=== PATIENT | female | born 1960 | race Caucasian/White ===

== ENCOUNTER 2018-04-17 13:09 | Emergency (ER) | payer SELFPAY ==
[2018-04-17 13:55] LABS: #Basophils 0.1 thou/uL (0.0-0.2); #Eosinphils 0.3 thou/uL (0.0-0.7); #Lymphocytes 1.4 thou/uL (1.20-3.40); #Monocytes 0.4 thou/uL (0.11-0.59); #Neutrophils 6.9 thou/uL (1.40-6.50); %Basophils 0.7 % (0.0-1.0); %Eosinophils 3.5 % (0.0-10.0); %Lymphocytes 15.6 % (21.0-51.0); %Monocytes 4.3 % (0.0-10.0); %Neutrophils 75.8 % (42.0-75.0); Hemoglobin 15.9 g/dL (12.0-16.0); Mean Corpuscular HGB CONC 33.8 g/dL (32.0-36.0); Mean Corpuscular Hemoglobin 31.6 pg (27.0-31.0); Mean Corpuscular Volume 93.4 fL (78.0-98.0); Mean Platelet Volume 8.1 fL (7.4-10.4); Platelet Count 272 thou/uL (130-400); Red Blood Cell (RBC) Count 5.03 mill/uL (4.20-5.40); White Blood Cell (WBC) Count 9.1 thou/uL (4.8-10.8)
[2018-04-17] MEDS ORDERED: Water For Inject, Bacteriostat 30 ML ONE (14:05)
[2018-04-17] MEDS ORDERED: methylPREDNISolone Sod Succ/PF 125 MG/2 ML VIAL ONE (14:05)
[2018-04-17] MEDS ORDERED: Azithromycin 500 MG VIAL ONE (14:07)
[2018-04-17] MEDS ORDERED: Albuterol Sulfate 2.5 mg/0.5 ml Neb ONE ×2 (14:10)
[2018-04-17 14:15] LABS: ALT (SGPT) 13 U/L (8-55); AST (SGOT) 18 U/L (5-34); Albumin 4.5 g/dL (3.5-5.0); Alkaline Phosphatase 82 U/L (40-150); Anion Gap 17 mmol/L (10-20); BUN (Urea Nitrogen) 8 mg/dL (9.8-20.1); Bilirubin, Total 0.5 mg/dL (0.2-1.2); Calc. Creatinine Clearance 0 mL/min (70-130); Calcium 9.6 mg/dL (7.8-10.44); Carbon Dioxide 19 mmol/L (22-29); Chloride 106 mmol/L (98-107); Estimated GFR-MDRD 72; Globulin 3.1 g/dL (2.4-3.5); Glucose 106 mg/dL (70-105); Potassium 3.8 mmol/L (3.5-5.1); Protein, Total 7.6 g/dL (6.0-8.3); Sodium 138 mmol/L (136-145)
--- NOTE | 2018-04-17 14:26 | RAD ---
PORTABLE CHEST: DATE: 04/17/2018. PROVIDED CLINICAL HISTORY: Cough. FINDINGS: Comparison 03/06/2014. Cardiac and mediastinal silhouette is unchanged in appearance. Emphysematous changes are again noted. No focal consolidation, pleural fluid, or pneumothorax apparent. IMPRESSION: No evidence for an acute cardiopulmonary process. POS: [facility]
--- NOTE | 2018-04-23 13:26 | EKG ---
Test Reason : SOB Blood Pressure : / mmHG Vent. Rate : 096 BPM Atrial Rate : 096 BPM P-R Int : 130 ms QRS Dur : 076 ms QT Int : 360 ms P-R-T Axes : 070 065 039 degrees QTc Int : 454 ms Normal sinus rhythm Possible Left atrial enlargement ST abnormality, possible digitalis effect Abnormal ECG Confirmed by RACH HUNTER DO ([id number]), editor publications CARLOS WALLACE ([id number]) on 04/23/2018 1:26:40 PM Referred By: DALE Confirmed By:RACH HUNTER DO
== END 2018-04-17 16:27 | disposition home or self-care (01) ==
LOC: ERS 13:09
DX: J44.1 Chronic obstructive pulmonary disease with (acute) exacerbation (principal); E78.5 Hyperlipidemia, unspecified; I10 Essential (primary) hypertension; F17.210 Nicotine dependence, cigarettes, uncomplicated; Z79.899 Other long term (current) drug therapy
CPT/HCPCS: 36415; 71045; 80053; 84484; 85025; 85379; 87040; 93005; 94640; 96365; 96375; J0456; J2930; J7611

== ENCOUNTER 2018-05-02 03:45 | Inpatient (IN) | payer SELFPAY ==
[2018-05-02 04:20] LABS: #Eosinphils 0.5 thou/uL (0.0-0.7); #Lymphocytes 1.6 thou/uL (1.20-3.40); #Monocytes 0.8 thou/uL (0.11-0.59); #Neutrophils 11.7 thou/uL (1.40-6.50); %Basophils 0.3 % (0.0-1.0); %Eosinophils 3.3 % (0.0-10.0); %Lymphocytes 11.1 % (21.0-51.0); %Monocytes 5.2 % (0.0-10.0); %Neutrophils 80.2 % (42.0-75.0); Hemoglobin 15.3 g/dL (12.0-16.0); Mean Corpuscular HGB CONC 34.1 g/dL (32.0-36.0); Mean Corpuscular Hemoglobin 32.1 pg (27.0-31.0); Mean Corpuscular Volume 94.2 fL (78.0-98.0); Mean Platelet Volume 7.8 fL (7.4-10.4); Platelet Count 246 thou/uL (130-400); RBC Distribution Width 13.5 % (11.5-14.5); Red Blood Cell (RBC) Count 4.76 mill/uL (4.20-5.40); White Blood Cell (WBC) Count 14.6 thou/uL (4.8-10.8)
[2018-05-02] MEDS ORDERED: Lisinopril 10 MG TAB ONE (04:24)
[2018-05-02] MEDS ORDERED: methylPREDNISolone Sod Succ/PF 125 MG/2 ML VIAL ONE (04:24)
[2018-05-02 04:41] LABS: ALT (SGPT) 12 U/L (8-55); AST (SGOT) 14 U/L (5-34); Albumin 4.2 g/dL (3.5-5.0); Alkaline Phosphatase 82 U/L (40-150); Anion Gap 14 mmol/L (10-20); BUN (Urea Nitrogen) 7 mg/dL (9.8-20.1); Bilirubin, Total 0.7 mg/dL (0.2-1.2); Calc. Creatinine Clearance 0 mL/min (70-130); Calcium 9.3 mg/dL (7.8-10.44); Carbon Dioxide 23 mmol/L (22-29); Chloride 104 mmol/L (98-107); Estimated GFR-MDRD 78; Globulin 2.7 g/dL (2.4-3.5); Glucose 131 mg/dL (70-105); Potassium 3.4 mmol/L (3.5-5.1); Protein, Total 6.9 g/dL (6.0-8.3); Sodium 138 mmol/L (136-145)
[2018-05-02] MEDS ORDERED: Artificial Tears 18 DROP/0.9 ML EA EYE PRN (08:27)
[2018-05-02] MEDS ORDERED: HYDROcodone/Acetaminophen 5/325 mg Tablet PO PRN (08:27)
[2018-05-02] MEDS ORDERED: Ondansetron PF 4 MG/2 ML Vial IVP PRN (08:27)
[2018-05-02] MEDS ORDERED: Zolpidem Tartrate 5 MG TAB PO PRN ×2 (08:27)
[2018-05-02] MEDS ORDERED: Senokot S 8.6-50 MG TAB PO PRN (08:27)
[2018-05-02] MEDS ORDERED: Loratadine 10 MG TAB PO PRN (08:27)
[2018-05-02] MEDS ORDERED: Diabetic Tussin 200 MG/10 ML UDCUP PO PRN (08:27)
[2018-05-02] MEDS ORDERED: Bisacodyl 5 MG TAB PO PRN (08:27)
[2018-05-02] MEDS ORDERED: Bisacodyl 10 MG SUPP PR PRN (08:27)
[2018-05-02] MEDS ORDERED: Eucerin (Mineral Oil/Petrolatum,White) 30 gm Jar TOP PRN (08:27)
[2018-05-02] MEDS ORDERED: Sodium Chloride 0.65% Nasal 44 ML BOT EA NARE PRN (08:27)
[2018-05-02] MEDS ORDERED: Ondansetron ODT 4 MG TAB PO PRN (08:27)
[2018-05-02] MEDS ORDERED: Acetaminophen 325 MG TAB PO PRN (08:27)
[2018-05-02] MEDS ORDERED: Calcium Carbonate 500 MG ChewTAB PO PRN (08:27)
[2018-05-02] MEDS ORDERED: Loperamide HCl 2 MG CAP PO PRN ×2 (08:27)
[2018-05-02] MEDS ORDERED: hydrALAZINE 20 MG/ML VIAL SLOW IVP PRN (08:27)
[2018-05-02] MEDS ORDERED: Cepastat Lozenges 1 LOZ PO PRN (08:27)
--- NOTE | 2018-05-02 09:21 | RAD ---
PORTABLE CHEST 1 VIEW: Date: 05/02/18 Time: 0415 hours HISTORY: Dyspnea. FINDINGS: Comparison made with exam of 04/17/18. The heart size is normal. The lungs are expanded without focal areas of consolidation, pneumothoraces , or pleural effusions. IMPRESSION: No radiographic evidence of acute cardiopulmonary process. POS: [facility]
[2018-05-02 09:33] VITALS: BMI 29.2
[2018-05-02] MEDS: Saccharomyces boulardii 250 MG CAP PO SCH (10:07)
[2018-05-02] MEDS: Enoxaparin Sodium 40 MG/0.4 ML SYRINGE SC SCH (10:08)
[2018-05-02] MEDS: guaiFENesin ER 600 MG TAB PO SCH ×2 (10:08→20:16)
[2018-05-02] MEDS: Famotidine 20 MG TAB PO SCH ×2 (10:09→20:16)
--- NOTE | 2018-05-02 11:48 | HP ---
PRIMARY CARE PHYSICIAN: Gaston Velázquez, nurse practitioner. REASON FOR ADMISSION: COPD exacerbation. HISTORY OF PRESENT ILLNESS: A 57-year-old female, who has underlying history of COPD, who has nebulizer machine at home. She is sick for last 1 or 2 weeks. She had a couple of emergency room visits during this period. Last time when she was presented to emergency room about a week ago, at that time, she was treated with respiratory therapy with DuoNeb, empiric antibiotic therapy, and steroid in the emergency room, and subsequently she was discharged home with p.o. prednisone and antibiotic therapy. The patient reports that she finished antibiotics and prednisone without any clinical improvement. She was wheezing every day. She was feeling shortness of breath even with little exertion. She was having difficulty sleeping during night time because of shortness of breath. She was requiring to remain awake and for last couple of nights, she did not get enough sleep. She was tired and that is why she decided to come to emergency room for evaluation. In the emergency room, the patient was in mild respiratory distress. She was treated with Solu-Medrol and DuoNeb therapy, but the patient's condition did not improve, and that is why this time patient requested to get admitted. The patient denies any flu-like illness. She denies any chest pain or hemoptysis. She denies any calf tenderness. She denies any pleurisy. She denies any dizziness. She does report chest wall discomfort and abdominal wall discomfort because of excessive coughing. REVIEW OF SYSTEMS: CONSTITUTIONAL: Negative for weight loss or gain, ability to conduct usual activities. SKIN: Negative for rash, itching. EYES: Negative for double vision, pain. ENT/MOUTH: Negative for nose bleeding, neck stiffness, pain, tenderness. CARDIOVASCULAR: Negative for palpitations, dyspnea on exertion, orthopnea. RESPIRATORY: Negative for shortness of breath, wheezing, cough, hemoptysis, fever or night sweats. GASTROINTESTINAL: Negative for poor appetite, abdominal pain, heartburn, nausea, vomiting, constipation, or diarrhea. GENITOURINARY: Negative for urgency, frequency, dysuria, nocturia. MUSCULOSKELETAL: Negative for pain, swelling. NEUROLOGIC/PSYCHIATRIC: Negative for anxiety, depression. ALLERGY/IMMUNOLOGIC: Negative for skin rash, bleeding tendency. Please see my HPI for pertinent positive and negative. All other review of systems reviewed and negative except as mentioned in HPI. PAST MEDICAL HISTORY: COPD/asthma, hypertension, dyslipidemia, and tobacco abuse disorder. PAST SURGICAL HISTORY: Reviewed and negative. PAST PSYCHIATRIC HISTORY: Reviewed and negative. SOCIAL HISTORY: The patient was smoking up to one pack per day up until 1 week ago. Then, she started stopping because of increasing shortness of breath. She denies any alcohol abuse. She denies any other illicit drug abuse. She lives at home with family. FAMILY HISTORY: Father had heart surgery in the past. Mother has history of diabetes and hypertension. EMERGENCY ROOM COURSE: The patient is given Solu-Medrol, DuoNeb therapy, IV fluid, lisinopril 10 mg given. ALLERGIES: NO KNOWN DRUG ALLERGIES. CURRENT HOME MEDICATIONS: 1. Zocor 10 mg at bedtime. 2. Lisinopril 10 mg daily. 3. Albuterol nebulization q.4 hourly. PHYSICAL EXAMINATION: VITAL SIGNS: On arrival, blood pressure 174/133, pulse 104, respiratory rate 24, temperature 98.4, and saturation 94% on 2 L oxygen. Weight 54.4 kg. GENERAL: The patient is currently alert, awake, tachycardic, hypertensive, mild respiratory distress. HEENT: Head; normocephalic and atraumatic. Eyes; pupils are round and reactive to light. Extraocular muscle intact. No nystagmus. ENT; oropharynx within normal limits. Moist mucous membranes. No oral lesion. No pharyngeal erythema. No exudate. NECK: Supple. No JVD. No thyromegaly. No carotid bruit. LUNGS: Bilateral wheezing present. Pursed lip breathing. No accessory muscles of respiration in use. The patient has difficulty talking full sentence. CARDIAC: S1 and S2, regular, tachycardia. No murmur. No gallop. No rub. ABDOMEN: Soft. Bowel sounds present. Nontender. Nondistended. No organomegaly. No mass. No suprapubic tenderness. Back: Unremarkable. No CVA tenderness. EXTREMITIES: Upper extremities; passive movement of all joints is normal. Lower extremities, no edema. Good distal pulsation. SKIN: No skin rash. HEMATOLOGICAL SYSTEM: No lymphadenopathy. PSYCHIATRIC: Normal affect. NEUROLOGIC: Nonfocal examination. SIGNIFICANT LABORATORY DATA: EKG showing sinus rhythm, left atrial enlargement. Chest x-ray showing emphysematous changes. CBC; WBC 14.6, hemoglobin 15.3, and platelet 246. BMP; sodium 138, potassium 3.4, chloride 104, carbon dioxide 23, BUN 7, creatinine 0.76, glucose 131, and calcium 9.3. Lactic acid 1.5. LFT; AST 14, ALT 12, alkaline phosphatase 82, and albumin 4.2. Cardiac enzyme negative. BNP 13.1. TSH 0.89. ASSESSMENT AND PLAN: Impression: 1. Acute chronic obstructive pulmonary disease exacerbation. The patient has emphysema. She has underlying history of obstructive lung disease, currently the patient requiring couple of emergency room visits and currently, emergency room treatment did not improve her condition. She is still wheezing and she still has mild respiratory distress. This patient will require hospitalization. We will continue to treat her with DuoNeb q.4 hourly, Solu-Medrol 40 mg IV q.6 hourly, Mucinex 600 mg twice daily, Dulera 2 puffs inhalation b.i.d. Smoking cessation counseling given. We will also consider empiric antibiotic therapy with Levaquin therapy. 2. Hypertension. We will continue lisinopril 10 mg p.o. daily. 3. Dyslipidemia. We will continue Zocor 10 mg p.o. at bedtime. 4. Tobacco abuse disorder. Smoking cessation counseling given. Healthy lifestyle measure discussed with the patient. 5. Deep venous thrombosis prophylaxis. Lovenox 40 mg subcu daily. 6. Gastrointestinal prophylaxis. Pepcid 20 mg p.o. b.i.d. CODE STATUS: The patient is full code. The patient making decision by herself. DISPOSITION PLAN: Based on clinical course, we are expecting the patient's stay in hospital more than 2 midnights. Plan of care discussed with the patient and family member at bedside in detail. Job ID: [id number]
[2018-05-02] MEDS ORDERED: Nicotine 21 MG PATCH TOP SCH (18:30)
[2018-05-02] MEDS: Mometasone/Formoterol 120 PUFF INHALER INH SCH (18:57)
[2018-05-02] MEDS ORDERED: Simvastatin 5 MG TAB PO SCH (21:00)
[2018-05-03 06:12] LABS: Anion Gap 13 mmol/L (10-20); BUN (Urea Nitrogen) 10 mg/dL (9.8-20.1); Calc. Creatinine Clearance 88 mL/min (70-130); Calcium 8.9 mg/dL (7.8-10.44); Carbon Dioxide 22 mmol/L (22-29); Chloride 107 mmol/L (98-107); Estimated GFR-MDRD 73; Glucose 124 mg/dL (70-105); Potassium 4.4 mmol/L (3.5-5.1); Sodium 138 mmol/L (136-145)
[2018-05-03 06:38] LABS: Band 12 % (5-11); Hemoglobin 13.6 g/dL (12.0-16.0); Lymphocytes 5 % (21-51); MDiff Complete? YES; Mean Corpuscular HGB CONC 33.1 g/dL (32.0-36.0); Mean Corpuscular Hemoglobin 31.7 pg (27.0-31.0); Mean Corpuscular Volume 95.6 fL (78.0-98.0); Monocytes 4 % (0-10); Neutrophil 79 % (42-75); Platelet Count 240 thou/uL (130-400); RBC Distribution Width 13.8 % (11.5-14.5); Red Blood Cell (RBC) Count 4.31 mill/uL (4.20-5.40); White Blood Cell (WBC) Count 17.8 thou/uL (4.8-10.8)
[2018-05-03] MEDS: Mometasone/Formoterol 120 PUFF INHALER INH SCH (06:44)
[2018-05-03 07:55] VITALS: BP 125/75; TEMP 98
[2018-05-03] MEDS: Famotidine 20 MG TAB PO SCH (08:09)
[2018-05-03] MEDS: Saccharomyces boulardii 250 MG CAP PO SCH (08:09)
[2018-05-03] MEDS: guaiFENesin ER 600 MG TAB PO SCH (08:09)
[2018-05-03] MEDS: Enoxaparin Sodium 40 MG/0.4 ML SYRINGE SC SCH (08:10)
[2018-05-03] MEDS ORDERED: Lisinopril 10 MG TAB PO SCH (09:00)
--- NOTE | 2018-05-03 09:50 | DIS ---
DATE OF ADMISSION: 05/02/2018 DATE OF DISCHARGE: 05/03/2018 PRIMARY CARE PHYSICIAN: Gaston Velázquez. DISCHARGE DISPOSITION: Home. PRIMARY DISCHARGE DIAGNOSIS: Chronic obstructive pulmonary disease exacerbation. SECONDARY DISCHARGE DIAGNOSES: Hypertension, dyslipidemia, tobacco abuse disorder. PRIMARY PROCEDURE/OPERATION: None. RADIOLOGICAL INVESTIGATION: Chest x-ray showed COPD changes. SIGNIFICANT LABORATORY DATA: WBC 17.8, hemoglobin 13.6, platelets 240. Sodium 138, potassium 4.4, BUN 10, creatinine 0.81, calcium 8.9. LFTs normal. Cardiac enzymes negative. BNP 13.1. TSH 0.89. DISCHARGE MEDICATIONS: 1. Lisinopril 10 mg daily. 2. Zocor 10 mg evening. 3. Ventolin nebulization q.6 hourly p.r.n. 4. ProAir HFA 2 puffs q.6 hourly p.r.n. 5. Ipratropium 0.5 mg nebulization q.6 hourly. 6. Mucinex 600 mg twice daily for 10 days. 7. Nicotine patch 21 mg every day for one week. 8. Pepcid 20 mg p.o. b.i.d. 9. Levaquin 750 mg p.o. daily for 5 days. 10. Dulera 2 puffs inhalation b.i.d. 11. Prednisone 20 mg b.i.d. for 10 days. 12. Florastor 250 mg p.o. daily. CONTRAINDICATION: None. CODE STATUS: Full code. INPATIENT UNDERWEAR FINISHER: None. ALLERGIES: NO KNOWN DRUG ALLERGIES. DISCHARGE PLAN: Posthospital, the patient is instructed to follow up with primary care physician in one week. HOSPITAL COURSE: A 57-year-old female who was admitted by me yesterday for a COPD exacerbation. Please see my H and P for further details. She required couple of emergency room visit recently. She had ongoing tobacco abuse disorder. She was not feeling better even after emergency room treatment yesterday and that is why she was kept in hospital. We treated her with Solu-Medrol 40 mg IV q.6 hourly, empiric antibiotic therapy with Levaquin, Dulera, Mucinex, and DuoNeb therapy. Today, the patient is feeling significantly better. She does not have any wheezing. Because of [place], she wants to go home today. The patient is on room air, ambulatory, tolerating p.o. well. While in hospital, we provided counseling to ever smoking. Overall, the patient is medically stable for discharge with the above-mentioned medications. PHYSICAL EXAMINATION: VITAL SIGNS: The patient is seen and examined at bedside today. Currently temperature 98, pulse 95, respiratory rate 18, saturation 94% on room air, and blood pressure 125/75. Weight 160 pounds. GENERAL: The patient is currently alert, awake. No obvious acute distress. HEENT: Head, normocephalic and atraumatic. Eyes; pupils are round, reactive to light. Extraocular muscle intact. ENT: Oropharynx within normal limits. LUNGS: Clear to auscultation without any rhonchi or rales. CARDIAC: S1 and S2. Regular without any murmur. ABDOMEN: Soft and benign without any tenderness. EXTREMITIES: No edema. NEUROLOGIC: Nonfocal examination. All new medication prescription given to her pharmacy. Job ID: [id number]
== END 2018-05-03 10:06 | disposition home or self-care (01) | DRG 192 ==
LOC: ERS 03:45 → ONC 06:40
PROVIDERS: ADMIT Internal Medicine; ATTEND Internal Medicine
DX: J44.1 Chronic obstructive pulmonary disease with (acute) exacerbation (principal); J43.9 Emphysema, unspecified; I10 Essential (primary) hypertension; E78.5 Hyperlipidemia, unspecified; F17.210 Nicotine dependence, cigarettes, uncomplicated
CPT/HCPCS: 36415; 71045; 80048; 80053; 83605; 83880; 84443; 84484; 85025; 93005; 94640; 96361; 96374; J1650; J1956; J2920; J2930; J7620

== ENCOUNTER 2018-08-13 21:09 | Inpatient (IN) | payer SELFPAY ==
--- NOTE | 2018-08-13 21:35 | RAD ---
FRadiograph chest one view: HISTORY: 57-year-old female with dyspnea FINDINGS: The visualized lung clark are clear. The cardiomediastinal silhouette is normal. No pneumothorax. Hy perinflation of lungs consistent with COPD. IMPRESSION: 1. No acute cardiopulmonary findings. 2. Emphysema.
[2018-08-13] MEDS ORDERED: methylPREDNISolone Sod Succ/PF 125 MG/2 ML VIAL ONE (21:42)
[2018-08-13 21:56] LABS: Actual Bicarbonate (HCO3a) 24.6 mEq/L (22-28); Analyzer IN Cardio ER; Base Excess (BEa) 0.8 mEq/L (-2.0 to +3.0); Calcium, Ionized 1.14 mmol/L (1.12-1.30); Carboxyhemoglobin (COHb) 1.7 gm% (0.0-3.0); Hemoglobin (Hb) 15.4 g/dL (12.0-16.0); O2 Tension (PaO2) 61.3 mmHg (80.0-100.0); Potassium - ABG Lab 3.49 mmol/L (3.70-5.30); pH, Arterial 7.44 (7.35-7.45)
[2018-08-13 22:04] LABS: Mean Corpuscular HGB CONC 33.2 g/dL (32.0-36.0); Mean Corpuscular Hemoglobin 32.1 pg (27.0-31.0); Mean Corpuscular Volume 96.8 fL (78.0-98.0); Mean Platelet Volume 8.3 fL (7.4-10.4); Platelet Count 240 thou/uL (130-400); RBC Distribution Width 12.9 % (11.5-14.5); Red Blood Cell (RBC) Count 4.67 mill/uL (4.20-5.40); White Blood Cell (WBC) Count 17.4 thou/uL (4.8-10.8)
[2018-08-13 22:12] LABS: ALT (SGPT) 13 U/L (8-55); AST (SGOT) 11 U/L (5-34); Albumin 4.2 g/dL (3.5-5.0); Alkaline Phosphatase 75 U/L (40-150); Anion Gap 11 mmol/L (10-20); BUN (Urea Nitrogen) 11 mg/dL (9.8-20.1); Band 10 % (5-11); Bilirubin, Total 0.4 mg/dL (0.2-1.2); Calc. Creatinine Clearance 0 mL/min (70-130); Calcium 9.1 mg/dL (7.8-10.44); Carbon Dioxide 29 mmol/L (22-29); Chloride 104 mmol/L (98-107); Eosinophils 7 % (0-10); Estimated GFR-MDRD 71; Globulin 2.6 g/dL (2.4-3.5); Glucose 108 mg/dL (70-105); Lymphocytes 10 % (21-51); MDiff Complete? YES; Metamyelocyte 1 % (0-0); Monocytes 2 % (0-10); Neutrophil 70 % (42-75); Platelet Morphology Comment Appears Adequate; Protein, Total 6.8 g/dL (6.0-8.3); Sodium 141 mmol/L (136-145)
[2018-08-13] MEDS ORDERED: Potassium Chloride 20 MEQ TAB ONE (23:39)
[2018-08-14] MEDS ORDERED: Sodium Chloride 0.9% 1,000 ML IV SCH (00:08)
[2018-08-14 00:14] VITALS: BMI 21.5
[2018-08-14 00:25] LABS: Puncture Site RBA
[2018-08-14] MEDS ORDERED: methylPREDNISolone Sod Succ 40 MG VIAL IVP SCH ×2 (01:00→06:00)
[2018-08-14] MEDS ORDERED: Ondansetron ODT 4 MG TAB PO PRN (01:51)
[2018-08-14] MEDS ORDERED: hydrALAZINE 20 MG/ML VIAL SLOW IVP PRN (01:51)
[2018-08-14] MEDS ORDERED: Acetaminophen 500 MG TAB PO PRN (01:51)
[2018-08-14] MEDS ORDERED: Ondansetron PF 4 MG/2 ML Vial IVP PRN (01:51)
[2018-08-14] MEDS ORDERED: Benzonatate 100 MG CAP PO PRN (01:51)
[2018-08-14] MEDS ORDERED: Bacteriostatic Water 30 ML VIAL FS PRN (01:59)
[2018-08-14] MEDS ORDERED: Potassium Chloride 20 MEQ TAB PO SCH (02:00)
--- NOTE | 2018-08-14 02:52 | HP ---
PRIMARY CARE PROVIDER: Melania Feldman MD CHIEF COMPLAINT: Shortness of breath. HISTORY OF PRESENT ILLNESS: This is a 57-year-old female, who presented to [facility] Emergency Department complaining of 2-3 day history of increasing shortness of breath, wheezing and unremitting to treatments including DuoNebs at home. The patient denied any recent exposure history, but does state that she was recently diagnosed with COPD in April 2018. The patient states she stopped smoking in April 2018 after the diagnosis and an admission to [facility] for COPD exacerbation. The patient denies using any home oxygen, but does states she uses a metered-dose inhaler as well as DuoNeb solution through nebulized machine. The patient denies any known history of severe seasonal allergies, but has noticed increased allergy type symptoms, taking occasional Benadryl. The patient states she has continued to remain off cigarettes and denies any family members with similar symptoms. The patient denied any specific fever, but does has but does admit to some increased phlegm and mucus production. In the emergency room, the patient underwent general evaluation including chest imaging showing emphysematous changes without focal consolidation. The patient received Levaquin 750 mg IV x1 dose in addition to potassium chloride, DuoNeb therapy, and 250 mg of IV Solu-Medrol. PAST MEDICAL HISTORY: 1. Chronic obstructive pulmonary disease. 2. Emphysema. 3. Tobacco abuse, quitting in April 2018. 4. Hypertension. 5. Hyperlipidemia. PAST SURGICAL HISTORY: Reviewed. PAST SURGICAL HISTORY: Reviewed and negative. CURRENT MEDICATIONS: 1. Proventil HFA 2 puffs inhaled q.4 hours p.r.n. 2. Lisinopril 10 mg p.o. daily. 3. Zocor 10 mg p.o. at bedtime. 4. DuoNeb nebulized q.4 hours p.r.n. ALLERGIES: NO KNOWN DRUG ALLERGIES. FAMILY HISTORY: Father with coronary artery disease. Mother with history of diabetes mellitus and hypertension. SOCIAL HISTORY: Patient smoked up to a pack per day, quitting in April 2018. No alcohol or illicit drug use. Resides in [place], [place]. Functional of all activities of daily living. REVIEW OF SYSTEMS: CONSTITUTIONAL: Negative for weight loss or gain, ability to conduct usual activities. SKIN: Negative for rash, itching. EYES: Negative for double vision, pain. ENT/MOUTH: Negative for nose bleeding, neck stiffness, pain, tenderness. CARDIOVASCULAR: Negative for palpitations, dyspnea on exertion, orthopnea. RESPIRATORY: Negative for shortness of breath, wheezing, cough, hemoptysis, fever or night sweats. GASTROINTESTINAL: Negative for poor appetite, abdominal pain, heartburn, nausea, vomiting, constipation, or diarrhea. GENITOURINARY: Negative for urgency, frequency, dysuria, nocturia. MUSCULOSKELETAL: Negative for pain, swelling. NEUROLOGIC/PSYCHIATRIC: Negative for anxiety, depression. ALLERGY/IMMUNOLOGIC: Negative for skin rash, bleeding tendency. Otherwise negative except as stated per HPI. HPI. PHYSICAL EXAMINATION: VITAL SIGNS: On admission, blood pressure 117/91, pulse 84, respiratory rate 20, temperature 97.6 degrees Fahrenheit, O2 saturation 95% on 2 L/minute nasal cannula. GENERAL APPEARANCE: This is a 57-year-old female, alert and oriented x3, pleasant, in [id number] respiratory distress. HEENT: Pupils are equal, round, reactive to light and accommodation. Extraocular muscles are intact. No scleral icterus. No conjunctival injection. Nares patent. OP is clear. Teeth in fair repair. NECK: Supple. No cervical adenopathy. No thyromegaly. No carotid bruits. No JVD appreciated. Cervical spine with full active and passive range of motion. No meningeal signs noted. CHEST: Coarse breath sounds bilaterally with inspiratory and expiratory wheezing. CARDIOVASCULAR EXAM: S1 and S2 with tachycardia. No murmur, rub, or gallop appreciated. ABDOMEN: Rounded, soft, nontender, and nondistended. Bowel sounds are positive in all 4 quadrants. There is no hepatosplenomegaly. No abdominal bruits. No rebound or guarding appreciated. EXTREMITIES: Warm and dry with fair turgor. No clubbing, cyanosis, or asymmetric edema appreciated. Pulses palpable distally at the dorsalis pedis, posterior tibial, and popliteal arteries bilaterally. Capillary refill less than 2 seconds. NEUROLOGIC: Cranial nerves 2 through 12 are grossly intact. No focal or lateralizing signs appreciated. PERTINENT LAB AND X-RAY FINDINGS: Sodium 141, potassium 3.0, chloride 104, CO2 of 29, BUN 11, creatinine 0.83, estimated GFR of 71, glucose 108, calcium 9.1. LFTs within normal limits. BNP 61.2. CBC showed a white blood cell count of 17.4, hemoglobin 15, hematocrit 45, platelet count 240 with 70% neutrophils. ABG dated 08/13/2018 showed a pH of 7.44, pCO2 37, PO2 61, bicarb 24.6 with O2 saturation 92% on 21% FiO2. IMAGING: Portable chest x-ray dated 08/13/2018 showed no acute cardiopulmonary process. Emphysematous changes noted bilaterally. ASSESSMENT/PLAN: 1. Acute hypoxic respiratory failure. The patient will be observed on the medical floor secondary to acute chronic obstructive pulmonary disease exacerbation. Continue oxygen supplementation and maintain O2 saturations greater than or equal to 88%. Wean oxygen as clinically indicated. 2. Acute chronic obstructive pulmonary disease exacerbation. We will continue bronchodilator therapy with DuoNeb q.4 hours. Add Dulera 2 puffs inhaled b.i.d. Continue Solu-Medrol 40 mg IV q.6 hours. Levaquin 750 mg IV daily. Consider pulmonology consult, if patient is not clinically improved in the next 24 hours. 3. Hypokalemia. Potassium chloride 40 mEq p.o. x1 now, followed by 40 mEq b.i.d. Repeat potassium level in the a.m. 4. Hypertension. Resume lisinopril 10 mg p.o. daily. Serial blood pressure monitoring. 5. Prophylaxis. Sequential compression devices while in bed. 6. Pepcid 20 mg p.o. b.i.d. CODE STATUS: Full. Surrogate medical decision maker is patient's daughter. Job ID: [id number]
[2018-08-14] MEDS: methylPREDNISolone Sod Succ 40 MG VIAL IVP SCH ×3 (05:15→17:00)
[2018-08-14] MEDS: Lorazepam 0.5 MG TAB PO PRN ×2 (06:20→17:05)
[2018-08-14] MEDS ORDERED: Mometasone/Formoterol 120 PUFF INHALER INH SCH (06:30)
[2018-08-14 07:11] LABS: Hemoglobin 14.3 g/dL (12.0-16.0); Mean Corpuscular HGB CONC 33.2 g/dL (32.0-36.0); Mean Corpuscular Hemoglobin 32.6 pg (27.0-31.0); Mean Corpuscular Volume 98.2 fL (78.0-98.0); Platelet Count 219 thou/uL (130-400); Red Blood Cell (RBC) Count 4.38 mill/uL (4.20-5.40)
[2018-08-14 07:14] LABS: Anion Gap 15 mmol/L (10-20); BUN (Urea Nitrogen) 10 mg/dL (9.8-20.1); Calc. Creatinine Clearance 68 mL/min (70-130); Calcium 9.1 mg/dL (7.8-10.44); Carbon Dioxide 24 mmol/L (22-29); Chloride 104 mmol/L (98-107); Estimated GFR-MDRD 77; Glucose 144 mg/dL (70-105); Sodium 139 mmol/L (136-145)
[2018-08-14 07:32] LABS: MDiff Complete? YES; Monocytes 3 % (0-10); Neutrophil 96 % (42-75); Platelet Morphology Comment Appears Adequate; RBC Morphology Normal; Reactive Lymphocytes 1 % (0-10)
[2018-08-14] MEDS: Potassium Chloride 20 MEQ TAB PO SCH ×2 (08:05→17:00)
[2018-08-14] MEDS: Famotidine 20 MG TAB PO SCH ×2 (08:07→20:30)
[2018-08-14] MEDS: Lisinopril 10 MG TAB PO SCH (08:07)
[2018-08-14] MEDS ORDERED: guaiFENesin ER 600 MG TAB PO SCH (10:45)
[2018-08-14] MEDS: Diabetic Tussin 200 MG/10 ML UDCUP PO PRN (11:48)
[2018-08-14] MEDS: guaiFENesin ER 600 MG TAB PO SCH (20:29)
[2018-08-14] MEDS: Simvastatin 5 MG TAB PO SCH (20:30)
--- NOTE | 2018-08-14 21:21 | CON ---
DATE OF CONSULTATION: 08/14/2018 HISTORY OF PRESENT ILLNESS: Kellie Barreto is a 57-year-old female. She is admitted with COPD exacerbation. She has been told by Melania Feldman who takes care of her that she has COPD. She says she was supposed to be on Symbicort, but can't afford it. She has ipratropium and albuterol that she mixes in her nebulizer and uses 3 to 4 times a day. She has never had a long hospitalization here. She has never been mechanically ventilated. She was hospitalized for 24 hours at the end of April, this is when she quit smoking. PAST MEDICAL HISTORY: Remarkable for hypertension, lipid disorder. FAMILY HISTORY: Negative for lung disease in early age. There is a history of vascular disease, hypertension, and diabetes. SOCIAL HISTORY: She is pack-a-day smoker until April. She is not a daily drinker. ALLERGIES: SHE HAS NO REPORTED DRUG ALLERGIES. REVIEW OF SYSTEMS: A 10 point review of systems completed, is negative. Specifically with her rest respiratory system, she denies hemoptysis, only purulent sputum production. She denies chest discomfort. PHYSICAL EXAMINATION: GENERAL: She is in no distress. She is afebrile. VITAL SIGNS: Heart rate is 110, respiratory rate is 20, oximetry is 92% on 2 L, blood pressure 152/69. HEENT: Pupils are equal. Sclerae are anicteric. NECK: Supple. No lymphadenopathy. LUNGS: Remarkable for diffuse wheezes. HEART: Regular rhythm. S1, S2 normal. I don't hear a murmur. ABDOMEN: Soft and nontender. EXTREMITIES: Without clubbing, cyanosis, or edema. IMAGING: Chest radiograph shows no infiltrates. IMPRESSION: Chronic obstructive pulmonary disease exacerbation with bronchitis. PLAN: She can continue on her IV steroids and nebulizer treatments. She probably can be switched to p.o. antimicrobial therapy. Tomorrow, her IV steroid dose could be decreased. I will be happy to follow her while she is in the hospital. She will not able to afford Dulera or Symbicort after she discharges and it probably has been adding a lot to her management while she was in the hospital, so I will discontinue that. She denies having asthma as a young woman, but she may have a component of reactive airways that might provide us with an option of giving her Singulair for a while to see, if this helps decrease the frequency of these exacerbations. Some COPDs have significant component of reactive airways and sometimes Singulair helps and it is less expensive and a lot of other options. I would leave her on long-term p.o. steroids, but if we can find a cost-effective alternative option for her then inhaled steroids may be that will work. I will continue to follow her while she is here. This is a 70 minute consult, with greater than 50% of time spent on unit coordinating care. Job ID: [id number] [facility]
[2018-08-15] MEDS: methylPREDNISolone Sod Succ 40 MG VIAL IVP SCH ×5 (00:59→23:47)
[2018-08-15] MEDS: Lorazepam 0.5 MG TAB PO PRN (01:06)
[2018-08-15] MEDS: Potassium Chloride 20 MEQ TAB PO SCH (07:58)
[2018-08-15] MEDS: Lisinopril 10 MG TAB PO SCH (07:59)
[2018-08-15] MEDS: guaiFENesin ER 600 MG TAB PO SCH ×2 (08:00→20:08)
[2018-08-15] MEDS: Famotidine 20 MG TAB PO SCH ×2 (08:00→20:08)
--- NOTE | 2018-08-15 11:06 | PRG ---
DATE OF SERVICE: 08/15/2018 SUBJECTIVE: Kellie Barreto says she is feeling better. OBJECTIVE: VITAL SIGNS: She is afebrile. Heart rate is 103, blood pressure 153/81, and respiratory rate is 20. LUNGS: Still remarkable for coarse wheezes, although she does have more audible breath sounds today. LABORATORY DATA: White count 13, hemoglobin 14.3, platelets 219. Electrolytes are normal today. Potassium is 4.0 and creatinine is 0.77. IMPRESSION: Chronic obstructive pulmonary disease exacerbation, slowly improving. PLAN: Continue current care. Reviewed medications. I will continue with her nebulized treatments. They can be changed from q.3 to q.4 since she has dramatically improved. Her antibiotics can be switched to p.o. in my opinion. Her steroid dose will be cut down to 20 mg IV q.6. I would anticipate she be in the hospital at least another 48 hours. Job ID: [id number]
--- NOTE | 2018-08-15 17:45 | PDOC.PN ---
- Subjective Encounter Start Date: 08/15/18 Encounter Start Time: 15:15 Patient seen and examined for Resp failure. Productive cough +. No fever. No new complaints. No overnight events - Objective Resuscitation Status - Order Detail: 08/14/18 01:45 Resuscitation Status Routine Resuscitation Status: FULL: Full Resuscitation MAR Reviewed: Yes Vital Signs & Weight: Vital Signs (12 hours) Temp Pulse Resp BP BP Pulse Ox 08/15/18 17:09 98.7 F 101 H 20 161/83 H 93 L 08/15/18 16:01 97.8 F 109 H 20 135/83 92 L 08/15/18 14:55 97 18 97 08/15/18 11:03 106 H 18 99 08/15/18 07:59 153/81 H 08/15/18 07:39 98.0 F 103 H 20 153/81 H 93 L 08/15/18 07:03 101 H 18 98 Weight Weight 117 lb 12.8 oz I&O: 08/14/18 08/15/18 08/16/18 06:59 06:59 06:59 Intake Total 510 1862 Balance 510 1862 Result Diagrams: 08/14/18 06:41 08/14/18 06:41 Phys Exam - Physical Examination Constitutional: NAD Respiratory: no rales Scat wheezing and rhonchi Cardiovascular: RRR, no rub Gastrointestinal: soft, non-tender, positive bowel sounds Musculoskeletal: no edema Neurological: moves all 4 limbs Dx/Plan - Plan DVT proph w/SCDs 1. Acute hypoxic resp failure due to COPD Exacerbation 2. HTN 3. Hypokalemia 4. Former smoker 5. HLD PLAN: Change Levaquin to PO Cont IV Steroids/Nebs Wean O2 Cont other meds as below AM labs Review of Systems - Review of Systems Constitutional: negative: fever, chills, sweats, weakness, malaise, other Gastrointestinal: negative: Nausea, Vomiting, Abdominal Pain, Diarrhea, Constipation, Melena, Hematochezia, Other - Medications/Allergies Allergies/Adverse Reactions: Allergies Allergy/AdvReac Type Severity Reaction Status Date / Time No Known Allergies Allergy Verified 08/14/18 00:21 Medications: Current Medications Acetaminophen (Tylenol) 1,000 mg PO Q6H PRN PRN Reason: Mild Pain (1-3) Albuterol/Ipratropium (Duoneb) 3 ml NEB Q1H PRN PRN Reason: SOB &/or Wheezing Albuterol/Ipratropium (Duoneb) 3 ml NEB [id number] [facility] Last Admin: 08/15/18 14:55 Dose: 3 ml Benzonatate (Tessalon) 100 mg PO Q6H PRN PRN Reason: Cough Famotidine (Pepcid) 20 mg PO BID [facility] Last Admin: 08/15/18 08:00 Dose: 20 mg Guaifenesin (Robitussin Sf) 200 mg PO Q4H PRN PRN Reason: Cough Last Admin: 08/14/18 11:48 Dose: 200 mg Guaifenesin (Mucinex) 1,200 mg PO Q12HR [facility] Last Admin: 08/15/18 08:00 Dose: 1,200 mg Hydralazine HCl (Apresoline) 10 mg SLOW IVP Q4H PRN PRN Reason: SBP > 180 and HR < 70 Levofloxacin (Levaquin) 500 mg PO 0600 [facility] Lisinopril (Zestril) 10 mg PO DAILY [facility] Last Admin: 08/15/18 07:59 Dose: 10 mg Lorazepam (Ativan) 0.5 mg PO Q8H PRN PRN Reason: Anxiety Last Admin: 08/15/18 01:06 Dose: 0.5 mg Methylprednisolone Sodium Succinate (Solu-Medrol) 20 mg IVP Q6HR [facility] Last Admin: 08/15/18 12:52 Dose: 20 mg Ondansetron HCl (Zofran Odt) 4 mg PO Q6H PRN PRN Reason: Nausea/Vomiting Ondansetron HCl (Zofran) 4 mg IVP Q6H PRN PRN Reason: Nausea/Vomiting Simvastatin (Zocor) 10 mg PO HS [facility] Last Admin: 08/14/18 20:30 Dose: 10 mg Sodium Chloride (Flush - Normal Saline) 10 ml IVF Q12HR [facility] Last Admin: 08/15/18 08:02 Dose: 10 ml Sodium Chloride (Flush - Normal Saline) 10 ml IVF PRN PRN PRN Reason: Saline Flush Sterile Water (Bacteriostatic Water) 1 ml FS PRN PRN PRN Reason: RECONSTITUTION Last Admin: 08/14/18 17:00 Dose: 1 ml
[2018-08-15] MEDS ORDERED: methylPREDNISolone Sod Succ 40 MG VIAL IVP SCH (19:30)
[2018-08-15] MEDS: Simvastatin 5 MG TAB PO SCH (20:09)
[2018-08-16] MEDS: Diabetic Tussin 200 MG/10 ML UDCUP PO PRN (04:27)
[2018-08-16] MEDS: methylPREDNISolone Sod Succ 40 MG VIAL IVP SCH ×2 (05:27→11:32)
[2018-08-16 07:44] LABS: Hemoglobin 13.6 g/dL (12.0-16.0); Mean Corpuscular HGB CONC 32.7 g/dL (32.0-36.0); Mean Corpuscular Hemoglobin 31.9 pg (27.0-31.0); Mean Corpuscular Volume 97.5 fL (78.0-98.0); Platelet Count 272 thou/uL (130-400); RBC Distribution Width 13.3 % (11.5-14.5); Red Blood Cell (RBC) Count 4.26 mill/uL (4.20-5.40); White Blood Cell (WBC) Count 16.8 thou/uL (4.8-10.8)
[2018-08-16 07:56] LABS: Anion Gap 13 mmol/L (10-20); BUN (Urea Nitrogen) 18 mg/dL (9.8-20.1); Calc. Creatinine Clearance 64 mL/min (70-130); Calcium 9.1 mg/dL (7.8-10.44); Carbon Dioxide 27 mmol/L (22-29); Chloride 102 mmol/L (98-107); Estimated GFR-MDRD 72; Glucose 92 mg/dL (70-105); Magnesium 2.6 mg/dL (1.6-2.6); Potassium 4.4 mmol/L (3.5-5.1); Sodium 138 mmol/L (136-145)
[2018-08-16 08:09] LABS: Band 2 % (5-11); Lymphocytes 9 % (21-51); MDiff Complete? YES; Monocytes 2 % (0-10); Neutrophil 86 % (42-75); RBC Morphology Normal; Reactive Lymphocytes 1 % (0-10)
[2018-08-16] MEDS: Lisinopril 10 MG TAB PO SCH (09:23)
[2018-08-16] MEDS: Famotidine 20 MG TAB PO SCH ×2 (09:23→19:52)
[2018-08-16] MEDS: guaiFENesin ER 600 MG TAB PO SCH ×2 (09:23→19:52)
--- NOTE | 2018-08-16 16:08 | PRG ---
DATE OF SERVICE: 08/16/2018 SUBJECTIVE: Kellie Barreto says she feels much better today. She has been ambulating around the room. No dyspnea. OBJECTIVE: VITAL SIGNS: She is afebrile, heart rate 79, respiratory rate 16, oximetry is 95% on room air, blood pressure 145/85. LUNGS: Remarkable for only end-expiratory wheezes now. HEART: Regular rhythm. ABDOMEN: Soft. EXTREMITIES: Without edema. LABORATORY DATA: White count 16.8, hemoglobin 13.6, platelets 272. Electrolytes are normal. IMPRESSION: Chronic obstructive pulmonary disease exacerbation, improved dramatically in the last 24 hours. We will switch her to p.o. steroids today. Hopefully, we can discharge her home tomorrow if she has a good night. Job ID: [id number]
[2018-08-16] MEDS: Sodium Chloride 0.65% Nasal 44 ML BOT EA NARE SCH ×2 (17:30→19:53)
[2018-08-16] MEDS: Simvastatin 5 MG TAB PO SCH (19:52)
--- NOTE | 2018-08-16 22:14 | PDOC.PN ---
- Subjective Encounter Start Date: 08/16/18 Encounter Start Time: 14:30 Patient seen and examined for COPD exacerbation. SOB improving. Productive cough. No new complaints. No overnight events - Objective Resuscitation Status - Order Detail: 08/14/18 01:45 Resuscitation Status Routine Resuscitation Status: FULL: Full Resuscitation MAR Reviewed: Yes Vital Signs & Weight: Vital Signs (12 hours) Temp Pulse Resp BP Pulse Ox 08/16/18 20:00 98.2 F 91 20 147/77 H 95 08/16/18 13:56 79 16 95 08/16/18 10:33 94 18 94 L Weight Weight 117 lb 12.8 oz I&O: 08/15/18 08/16/18 08/17/18 06:59 06:59 06:59 Intake Total 1862 810 Balance 1862 810 Result Diagrams: 08/16/18 07:05 08/16/18 07:05 Phys Exam - Physical Examination Constitutional: NAD Respiratory: no rales, wheezing present (scat) Cardiovascular: RRR, no rub Gastrointestinal: soft, non-tender, positive bowel sounds Musculoskeletal: no edema Dx/Plan - Plan DVT proph w/SCDs 1. Acute hypoxic resp failure due to COPD Exacerbation 2. HTN 3. Hypokalemia 4. Former smoker 5. HLD PLAN: Cont PO Atbx/Steroids Cont Nebs Cont other meds as below DC in 24 hr if stable Review of Systems - Review of Systems Respiratory: Cough, SOB with Excertion, Sputum. negative: Dry, Shortness of Breath, Hemoptysis, Pleuritic Pain, Wheezing Gastrointestinal: negative: Nausea, Vomiting, Abdominal Pain, Diarrhea, Constipation, Melena, Hematochezia, Other - Medications/Allergies Allergies/Adverse Reactions: Allergies Allergy/AdvReac Type Severity Reaction Status Date / Time No Known Allergies Allergy Verified 08/14/18 00:21 Medications: Current Medications Acetaminophen (Tylenol) 1,000 mg PO Q6H PRN PRN Reason: Mild Pain (1-3) Albuterol/Ipratropium (Duoneb) 3 ml NEB Q1H PRN PRN Reason: SOB &/or Wheezing Albuterol/Ipratropium (Duoneb) 3 ml NEB [id number] ANABEL Last Admin: 08/16/18 19:53 Dose: 3 ml Benzonatate (Tessalon) 100 mg PO Q6H PRN PRN Reason: Cough Last Admin: 08/15/18 22:03 Dose: 100 mg Famotidine (Pepcid) 20 mg PO BID [facility] Last Admin: 08/16/18 19:52 Dose: 20 mg Guaifenesin (Robitussin Sf) 200 mg PO Q4H PRN PRN Reason: Cough Last Admin: 08/16/18 04:27 Dose: 200 mg Guaifenesin (Mucinex) 1,200 mg PO Q12HR [facility] Last Admin: 08/16/18 19:52 Dose: 1,200 mg Hydralazine HCl (Apresoline) 10 mg SLOW IVP Q4H PRN PRN Reason: SBP > 180 and HR < 70 Levofloxacin (Levaquin) 500 mg PO 0600 [facility] Last Admin: 08/16/18 05:27 Dose: 500 mg Lisinopril (Zestril) 10 mg PO DAILY [facility] Last Admin: 08/16/18 09:23 Dose: 10 mg Lorazepam (Ativan) 0.5 mg PO Q8H PRN PRN Reason: Anxiety Last Admin: 08/15/18 01:06 Dose: 0.5 mg Ondansetron HCl (Zofran Odt) 4 mg PO Q6H PRN PRN Reason: Nausea/Vomiting Ondansetron HCl (Zofran) 4 mg IVP Q6H PRN PRN Reason: Nausea/Vomiting Prednisone (Prednisone) 40 mg PO QAM-[facility] Simvastatin (Zocor) 10 mg PO HS [facility] Last Admin: 08/16/18 19:52 Dose: 10 mg Sodium Chloride (Flush - Normal Saline) 10 ml IVF Q12HR [facility] Last Admin: 08/16/18 19:54 Dose: 10 ml Sodium Chloride (Flush - Normal Saline) 10 ml IVF PRN PRN PRN Reason: Saline Flush Sodium Chloride ([place] Nasal [place] 0.65%) 0 ml EA NARE QID [facility] Last Admin: 08/16/18 19:53 Dose: 1 spr Sterile Water (Bacteriostatic Water) 1 ml FS PRN PRN PRN Reason: RECONSTITUTION Last Admin: 08/14/18 17:00 Dose: 1 ml
[2018-08-17] MEDS ORDERED: predniSONE 20 MG TAB PO SCH (08:00)
[2018-08-17] MEDS: guaiFENesin ER 600 MG TAB PO SCH (08:09)
[2018-08-17] MEDS: Lisinopril 10 MG TAB PO SCH (08:09)
[2018-08-17] MEDS: Famotidine 20 MG TAB PO SCH (08:09)
[2018-08-17] MEDS: Sodium Chloride 0.65% Nasal 44 ML BOT EA NARE SCH ×2 (08:12→14:13)
[2018-08-17] MEDS ORDERED: Docusate 100 MG CAP PO PRN (11:47)
--- NOTE | 2018-08-17 12:40 | DIS ---
DATE OF ADMISSION: 08/14/2018 DATE OF DISCHARGE: 08/17/2018 PRIMARY CARE PHYSICIAN: Melania Feldman, NOISE TESTER-Diego DISCHARGE DISPOSITION: Home. PRIMARY DISCHARGE DIAGNOSES: 1. Acute respiratory failure with hypoxia, resolved. 2. Chronic obstructive pulmonary disease exacerbation. 3. Hypokalemia, corrected. SECONDARY DISCHARGE DIAGNOSES: 1. Hypertension. 2. Dyslipidemia. 3. Chronic obstructive pulmonary disease. 4. Former smoker. PRIMARY PROCEDURE/OPERATION: None. RADIOLOGICAL INVESTIGATION: Chest x-ray showed no acute cardiopulmonary process, emphysema. SIGNIFICANT LABORATORY DATA: Hemoglobin 13.6. D-dimer 0.40. Creatinine 0.82. LFT normal. Cardiac enzyme negative. DISCHARGE MEDICATIONS: 1. Proventil HFA 2 puffs q.4 hourly p.r.n. 2. Atrovent HFA 2 puffs q.6 hourly. 3. Lisinopril 10 mg daily. 4. Zocor 10 mg at bedtime. 5. Mucinex 1200 mg twice daily for 7 days. 6. Pepcid 20 mg p.o. b.i.d. 7. Levaquin 500 mg p.o. daily for 5 more days. 8. Dulera 2 puff inhalation b.i.d. 9. Prednisone 40 mg p.o. daily for 5 days, then 20 mg p.o. daily for 5 days, then 10 mg p.o. daily for 5 days. CONTRAINDICATION: None. CODE STATUS: Full code. INPATIENT GAS PLANT TECHNICIAN: Dr. Sullivan was following while in hospital. TEST RESULTS PENDING ON DISCHARGE: None. ALLERGIES: NO KNOWN DRUG ALLERGIES. DISCHARGE PLAN: Posthospital, the patient is instructed to follow up with primary care physician and plant health manager. HOSPITAL COURSE: A 57-year-old female, who was admitted by Dr. Loyd. Please see his H and P for further details. The patient was admitted for COPD exacerbation. Her chest x-ray was unremarkable. She was initially in COPD flare with respiratory failure with hypoxia. She required oxygen therapy. She was admitted to the hospital and she was treated with Solu-Medrol, empiric antibiotic therapy and respiratory therapy. With this, the patient's condition significantly improved. By the time of discharge, she was on room air. She was ambulatory, tolerating p.o. well. She was able to talk in full sentence. I have seen and examined the patient at bedside today. Her physical examination is completely unremarkable. She is given necessary discharge instruction. All new medication prescription sent to her pharmacy. The patient is medically stable for discharge today. Job ID: [id number]
--- NOTE | 2018-08-17 13:23 | PDOC.PN ---
- Subjective Encounter Start Date: 08/17/18 Encounter Start Time: 10:25 -: old records requested/rev Patient seen and examined. No new complaints. No overnight events - Objective Resuscitation Status - Order Detail: 08/14/18 01:45 Resuscitation Status Routine Resuscitation Status: FULL: Full Resuscitation MAR Reviewed: Yes Vital Signs & Weight: Vital Signs (12 hours) Temp Pulse Resp BP BP Pulse Ox 08/17/18 10:18 89 16 92 L 08/17/18 08:09 153/81 H 08/17/18 08:00 95 08/17/18 07:53 98.5 F 87 18 166/76 H 91 L 08/17/18 06:38 75 16 92 L 08/17/18 02:13 89 16 93 L Weight Weight 117 lb 12.8 oz I&O: 08/16/18 08/17/18 08/18/18 06:59 06:59 06:59 Intake Total 810 720 Balance 810 720 Result Diagrams: 08/16/18 07:05 08/16/18 07:05 Phys Exam - Physical Examination Constitutional: NAD HEENT: PERRLA, moist MMs, sclera anicteric Neck: no JVD, supple Respiratory: no wheezing, no rales, no rhonchi Cardiovascular: RRR, no significant murmur, no rub Gastrointestinal: soft, non-tender, no distention, positive bowel sounds Musculoskeletal: no edema, pulses present Neurological: non-focal, normal sensation, moves all 4 limbs Lymphatic: no nodes Psychiatric: normal affect, A&O x 3 Skin: no rash, normal turgor Dx/Plan (1) Acute respiratory failure with hypoxemia Code(s): J96.01 - ACUTE RESPIRATORY FAILURE WITH HYPOXIA Status: Acute (2) COPD exacerbation Code(s): J44.1 - CHRONIC OBSTRUCTIVE PULMONARY DISEASE W (ACUTE) EXACERBATION Status: Acute (3) Hypokalemia Code(s): E87.6 - HYPOKALEMIA Status: Acute (4) Dyslipidemia Code(s): E78.5 - HYPERLIPIDEMIA, UNSPECIFIED Status: Chronic (5) Hypertension Code(s): I10 - ESSENTIAL (PRIMARY) HYPERTENSION Status: Chronic - Plan cont current plan of care, continue antibiotics * medication reviewed as below * symptomatic treatment * see discharge pancho. Review of Systems - Review of Systems ENT: negative: Ear Pain, Ear Discharge, Nose Pain, Nose Discharge, Nose Congestion, Mouth Pain, Mouth Swelling, Throat Pain, Throat Swelling, Other Respiratory: negative: Cough, Dry, Shortness of Breath, Hemoptysis, SOB with Excertion, Pleuritic Pain, Sputum, Wheezing Cardiovascular: negative: chest pain, palpitations, orthopnea, paroxysmal nocturnal dyspnea, edema, light headedness, other Gastrointestinal: negative: Nausea, Vomiting, Abdominal Pain, Diarrhea, Constipation, Melena, Hematochezia, Other Genitourinary: negative: Dysuria, Frequency, Incontinence, Hematuria, Retention , Other Musculoskeletal: negative: Neck Pain, Shoulder Pain, Arm Pain, Back Pain, Hand Pain, Leg Pain, Foot Pain, Other - Medications/Allergies Allergies/Adverse Reactions: Allergies Allergy/AdvReac Type Severity Reaction Status Date / Time No Known Allergies Allergy Verified 08/14/18 00:21 Medications: Current Medications Acetaminophen (Tylenol) 1,000 mg PO Q6H PRN PRN Reason: Mild Pain (1-3) Albuterol/Ipratropium (Duoneb) 3 ml NEB Q1H PRN PRN Reason: SOB &/or Wheezing Albuterol/Ipratropium (Duoneb) 3 ml NEB [id number] [facility] Last Admin: 08/17/18 10:18 Dose: 3 ml Benzonatate (Tessalon) 100 mg PO Q6H PRN PRN Reason: Cough Last Admin: 08/15/18 22:03 Dose: 100 mg Docusate Sodium (Colace) 100 mg PO BID PRN PRN Reason: CONSTIPATION Famotidine (Pepcid) 20 mg PO BID [facility] Last Admin: 08/17/18 08:09 Dose: 20 mg Guaifenesin (Robitussin Sf) 200 mg PO Q4H PRN PRN Reason: Cough Last Admin: 08/16/18 04:27 Dose: 200 mg Guaifenesin (Mucinex) 1,200 mg PO Q12HR [facility] Last Admin: 08/17/18 08:09 Dose: 1,200 mg Hydralazine HCl (Apresoline) 10 mg SLOW IVP Q4H PRN PRN Reason: SBP > 180 and HR < 70 Levofloxacin (Levaquin) 500 mg PO 0600 [facility] Last Admin: 08/17/18 05:46 Dose: 500 mg Lisinopril (Zestril) 10 mg PO DAILY [facility] Last Admin: 08/17/18 08:09 Dose: 10 mg Lorazepam (Ativan) 0.5 mg PO Q8H PRN PRN Reason: Anxiety Last Admin: 08/15/18 01:06 Dose: 0.5 mg Ondansetron HCl (Zofran Odt) 4 mg PO Q6H PRN PRN Reason: Nausea/Vomiting Ondansetron HCl (Zofran) 4 mg IVP Q6H PRN PRN Reason: Nausea/Vomiting Prednisone (Prednisone) 40 mg PO QAM-WM [facility] Last Admin: 08/17/18 08:09 Dose: 40 mg Simvastatin (Zocor) 10 mg PO HS [facility] Last Admin: 08/16/18 19:52 Dose: 10 mg Sodium Chloride (Flush - Normal Saline) 10 ml IVF Q12HR [facility] Last Admin: 08/17/18 08:10 Dose: 10 ml Sodium Chloride (Flush - Normal Saline) 10 ml IVF PRN PRN PRN Reason: Saline Flush Sodium Chloride ([place] Nasal [place] 0.65%) 0 ml EA NARE QID [facility] Last Admin: 08/17/18 08:12 Dose: Not Given Sterile Water (Bacteriostatic Water) 1 ml FS PRN PRN PRN Reason: RECONSTITUTION Last Admin: 08/14/18 17:00 Dose: 1 ml
--- NOTE | 2018-08-17 13:30 | PRG ---
DATE OF SERVICE: 08/17/2018 SUBJECTIVE: Ms. Barreto is afebrile. OBJECTIVE: VITAL SIGNS: Blood pressure 152/81, respiratory rate 16, oximetry is 92% on room air. LUNGS: Only remarkable for end-expiratory wheezes. PLAN: I think she has reached a point where she can be safely discharged home. I have written for prednisone taper 40 mg for 4 days, 20 for 8 days, 10 for 8 days. I have written a prescription for unit dose ipratropium to be mixed with unit dose albuterol. This is a cheaper way for her to do her nebulizer treatments 4 times a day. She will follow up with me in a month. I have written a prescription also. She has been here and had 4 days of antibiotics. She probably needs only 3 more days of Levaquin. She should be fine. Job ID: [id number]
[2018-08-17 14:15] VITALS: BP 123/79; TEMP 98.4
== END 2018-08-17 14:18 | disposition home or self-care (01) | DRG 189 ==
LOC: ERS 21:09 → OBSVTOIN 08-14 → T4-A 08-14
PROVIDERS: ADMIT Family Medicine; ATTEND Family Medicine
DX: J96.01 Acute respiratory failure with hypoxia (principal); J44.1 Chronic obstructive pulmonary disease with (acute) exacerbation; I10 Essential (primary) hypertension; E87.6 Hypokalemia; E78.5 Hyperlipidemia, unspecified; Z87.891 Personal history of nicotine dependence
CPT/HCPCS: 36415; 71045; 80048; 80053; 82805; 83735; 83880; 84484; 85007; 85025; 85027; 85379; 87040; 93005; 94640; 94660; J1956; J2920; J2930; J7620

== ENCOUNTER 2020-07-19 03:22 | Emergency (ER) | payer SELFPAY ==
[2020-07-19] MEDS ORDERED: HYDROcodone/Acetaminophen 5/325 mg Tablet ONE (04:53)
[2020-07-19] MEDS ORDERED: Ondansetron ODT 8 MG TAB ONE (04:53)
== END 2020-07-19 05:25 | disposition home or self-care (01) ==
LOC: ERS 03:22
DX: S91.202A Unspecified open wound of left great toe with damage to nail, initial encounter (principal); S60.222A Contusion of left hand, initial encounter; E78.5 Hyperlipidemia, unspecified; E78.00 Pure hypercholesterolemia, unspecified; I10 Essential (primary) hypertension; J44.9 Chronic obstructive pulmonary disease, unspecified; Z87.891 Personal history of nicotine dependence; Z79.899 Other long term (current) drug therapy; W01.0XXA Fall on same level from slipping, tripping and stumbling without subsequent striking against object, initial encounter
CPT/HCPCS: Q0162

== ENCOUNTER 2023-03-15 13:44 | Outpatient (CLI) | payer OTHER | END 2023-03-15 13:45 | disposition home or self-care (01) | LOC: RAD-FRANK 13:44 | PROVIDERS: ATTEND Nurse Practitioner Family | DX: M25.571 Pain in right ankle and joints of right foot (principal); S82.51XA Displaced fracture of medial malleolus of right tibia, initial encounter for closed fracture; M79.89 Other specified soft tissue disorders ==

== ENCOUNTER 2023-03-23 12:00 | Day surgery (SDC) | payer SELFPAY ==
[2023-03-22 10:48] VITALS: BMI 22.4
[2023-03-23] MEDS ORDERED: fentaNYL 50 mcg/mL 1 mL Vial ONE ×3 (13:20→15:49)
[2023-03-23] MEDS ORDERED: Ropivacaine 0.5% HCl/PF (150 MG/30 ML VIAL) ONE (13:20)
[2023-03-23] MEDS ORDERED: Sodium Chloride 0.9% 100 ML ONE (14:01)
[2023-03-23] MEDS ORDERED: CEFAZOLIN 2 GM VIAL ONE (14:01)
[2023-03-23] MEDS ORDERED: PROPOFOL 20 ML ONE (14:06)
[2023-03-23] MEDS ORDERED: Dexamethasone 20 MG/5 ML VIAL ONE ×2 (14:07→14:24)
[2023-03-23] MEDS ORDERED: Lidocaine 1% PF 5 ML VIAL ONE ×2 (14:07→14:24)
[2023-03-23] MEDS ORDERED: Ondansetron PF 4 MG/2 ML Vial ONE (14:24)
[2023-03-23] MEDS ORDERED: PROPOFOL 200 MG/20 ML VIAL ONE (14:24)
[2023-03-23] MEDS ORDERED: fentaNYL PF 100 MCG/2 ML SYRINGE ONE ×2 (15:05→15:28)
[2023-03-23] MEDS ORDERED: HYDROcodone/Acetaminophen 5/325 mg Tablet ONE (16:24)
== END 2023-03-23 17:09 | disposition home or self-care (01) ==
LOC: SDC 12:00
PROVIDERS: ATTEND Orthopaedic Surgery
PROC: 0QSG04Z Reposition Right Tibia with Internal Fixation Device, Open Approach (ICD-10-PCS; principal; 2023-03-23)
DX: S82.51XA Displaced fracture of medial malleolus of right tibia, initial encounter for closed fracture (principal); I10 Essential (primary) hypertension; E78.5 Hyperlipidemia, unspecified; J44.9 Chronic obstructive pulmonary disease, unspecified; K21.9 Gastro-esophageal reflux disease without esophagitis; Z87.891 Personal history of nicotine dependence; Z79.899 Other long term (current) drug therapy; X58.XXXA Exposure to other specified factors, initial encounter
CPT/HCPCS: 93005; 93010; C1713; J1100; J2405; J2704; J2795; J3010; J3490

== ENCOUNTER 2023-04-05 09:06 | Emergency (ER) | payer SELFPAY ==
[2023-04-05] MEDS ORDERED: methylPREDNISolone Sod Succ/PF 125 MG/2 ML VIAL ONE (10:37)
[2023-04-05 11:07] LABS: #Eosinphils 0.1 thou/uL (0.0-0.7); #Monocytes 0.4 thou/uL (0.11-0.59); #Neutrophils 7.3 thou/uL (1.40-6.50); %Basophils 0.5 % (0.0-1.0); %Eosinophils 0.6 % (0.0-10.0); %Lymphocytes 3.5 % (21.0-51.0); %Monocytes 4.7 % (0.0-10.0); %Neutrophils 90.2 % (42.0-75.0); Hematocrit 40.7 % (36.0-47.0); Mean Corpuscular HGB CONC 34.4 g/dL (32.0-36.0); Mean Corpuscular Hemoglobin 31.4 pg (27.0-31.0); Mean Corpuscular Volume 91.3 fl (78.0-98.0); Platelet Count 300 10x3/uL (130-400); RBC Distribution Width 14.3 % (11.5-14.5); Red Blood Cell (RBC) Count 4.46 mill/uL (4.20-5.40); White Blood Cell (WBC) Count 8.1 10x3/uL (4.8-10.8)
[2023-04-05 11:16] LABS: ALT (SGPT) 13 U/L (8-55); AST (SGOT) 17 U/L (5-34); Albumin 4.2 g/dL (3.4-4.8); Alkaline Phosphatase 103 U/L (40-110); Anion Gap 15 mmol/L (10-20); BUN (Urea Nitrogen) 10 mg/dL (9.8-20.1); Bilirubin, Total 0.6 mg/dL (0.2-1.2); Calc. Creatinine Clearance 0 mL/min (70-130); Calcium 9.6 mg/dL (7.8-10.44); Carbon Dioxide 21 mmol/L (23-31); Chloride 103 mmol/L (98-107); Estimated GFR 71; Glucose 101 mg/dL (80-115); Potassium 3.8 mmol/L (3.5-5.1); Protein, Total 7.2 g/dL (5.8-8.1); Sodium 135 mmol/L (136-145); Troponin I Less than 0.010 ng/mL (< 0.028)
[2023-04-05 13:15] LABS: Bacteria/HPF None Seen HPF (None Seen); Bilirubin Negative (Negative); Blood, Urine Negative (Negative); CAUTI Indications for Culture Dysuria,urgency,freq; Clarity Clear (Clear); Glucose, Urine (Dipstick) Normal (Negative); Ketone, Urine Negative (Negative); Leukocyte 25 Leu/uL (Negative); Nitrite Negative (Negative); Protein, Urine (Dipstick) Negative (Neg-Trace); RBC/HPF 0-3 HPF (0-3); Specific Gravity, Urine 1.019 (1.002-1.036); Squamous Epithelial 0-3 HPF (0-3); Urobilinogen Normal mg/dL (Less than 2); WBC/HPF 0-3 HPF (0-3)
[2023-04-05] MEDS ORDERED: Iopamidol-370 76% 500 ML MDV (1 ML CHARGE) ONE (13:15)
[2023-04-05 13:17] LABS: Urine Culture Reflex No No
== END 2023-04-05 12:57 | disposition home or self-care (01) ==
LOC: ERS 09:06
DX: J44.1 Chronic obstructive pulmonary disease with (acute) exacerbation (principal); R91.1 Solitary pulmonary nodule; C79.81 Secondary malignant neoplasm of breast; S90.01XA Contusion of right ankle, initial encounter; I10 Essential (primary) hypertension; E78.00 Pure hypercholesterolemia, unspecified; F17.210 Nicotine dependence, cigarettes, uncomplicated; Z79.899 Other long term (current) drug therapy; Z20.822 Contact with and (suspected) exposure to COVID-19; X58.XXXA Exposure to other specified factors, initial encounter
CPT/HCPCS: 36415; 71045; 71275; 80053; 81001; 83605; 84484; 85025; 87040; 87631; 87635; 96374; J2930; Q9967

== ENCOUNTER 2023-04-11 10:22 | Emergency (ER) | payer SELFPAY ==
[2023-04-11] MEDS ORDERED: Ipratropium Bromide 2.5 ml Neb ONE ×2 (10:48→12:29)
[2023-04-11] MEDS ORDERED: Albuterol 2.5 MG/0.5 ML NEB ONE (10:48)
[2023-04-11] MEDS ORDERED: Dexamethasone 10 MG/ML VIAL ONE (10:51)
[2023-04-11 10:54] LABS: Hemoglobin 13.6 g/dL (12.0-16.0); Manual Diff?? YES; Mean Corpuscular HGB CONC 33.2 g/dL (32.0-36.0); Mean Corpuscular Hemoglobin 30.9 pg (27.0-31.0); Mean Corpuscular Volume 93.2 fl (78.0-98.0); Mean Platelet Volume 10.3 fL (7.4-10.4); Platelet Count 270 10x3/uL (130-400); RBC Distribution Width 13.9 % (11.5-14.5); White Blood Cell (WBC) Count 7.3 10x3/uL (4.8-10.8)
[2023-04-11 10:59] LABS: Delete Auto Diff?? YES
[2023-04-11 11:15] LABS: ALT (SGPT) 24 U/L (8-55); AST (SGOT) 24 U/L (5-34); Albumin 4.1 g/dL (3.4-4.8); Alkaline Phosphatase 95 U/L (40-110); Anion Gap 17 mmol/L (10-20); BUN (Urea Nitrogen) 10 mg/dL (9.8-20.1); Bilirubin, Total 0.6 mg/dL (0.2-1.2); Calc. Creatinine Clearance 0 mL/min (70-130); Calcium 8.6 mg/dL (7.8-10.44); Carbon Dioxide 22 mmol/L (23-31); Chloride 105 mmol/L (98-107); Estimated GFR 86; Glucose 102 mg/dL (80-115); Potassium 3.2 mmol/L (3.5-5.1); Protein, Total 7.1 g/dL (5.8-8.1); Sodium 141 mmol/L (136-145)
[2023-04-11 11:21] LABS: Band 3 % (5-11); CellaVision Operator ID LAB.CMB; Eosinophils 1 % (0-10); Lymphocytes 20 % (21-51); Monocytes 8 % (0-10); Neutrophil 64 % (42-75); Plasma Cells 2 % (0-0); Platelet Adequacy Comment Platelets Normal; RBC Morphology Within Normal Limits; Reactive Lymphocytes 2 % (0-10); Total Cell Count 104
[2023-04-11] MEDS ORDERED: Acetaminophen 325 MG TAB ONE (12:26)
[2023-04-11] MEDS ORDERED: Ketorolac Tromethamine 30 MG/ML VIAL ONE (12:27)
== END 2023-04-11 14:13 | disposition home or self-care (01) ==
LOC: ERS 10:22
DX: J44.1 Chronic obstructive pulmonary disease with (acute) exacerbation (principal); J18.9 Pneumonia, unspecified organism; C78.00 Secondary malignant neoplasm of unspecified lung; C50.911 Malignant neoplasm of unspecified site of right female breast; I10 Essential (primary) hypertension; E78.00 Pure hypercholesterolemia, unspecified; F17.210 Nicotine dependence, cigarettes, uncomplicated; Z79.899 Other long term (current) drug therapy
CPT/HCPCS: 36415; 71045; 80053; 84484; 85025; 93005; 94640; 96374; 96375; J1100; J1885; J7611

== ENCOUNTER 2024-02-23 08:23 | Inpatient (IN) | payer OTHER, SELFPAY ==
[2024-02-23 09:07] LABS: #Basophils 0.06 10x3/uL (0.0-0.2); %Basophils 0.6 % (0.0-1.0); %Eosinophils 0.6 % (0.0-10.0); %Lymphocytes 10.7 % (21.0-51.0); %Monocytes 5.6 % (0.0-10.0); %Neutrophils 81.9 % (42.0-75.0); Hematocrit 40.6 % (36.0-47.0); Hemoglobin 13.9 g/dL (12.0-16.0); Mean Corpuscular HGB CONC 34.2 g/dL (32.0-36.0); Mean Corpuscular Hemoglobin 30.5 pg (27.0-31.0); Mean Corpuscular Volume 89.2 fL (78.0-98.0); Mean Platelet Volume 9.7 fL (7.4-10.4); Platelet Count 360 10x3/uL (130-400); RBC Distribution Width 14.3 % (11.5-14.5); Red Blood Cell (RBC) Count 4.55 mill/uL (4.20-5.40)
[2024-02-23 09:31] LABS: ALT (SGPT) 26 U/L (8-55); AST (SGOT) 49 U/L (5-34); Albumin 3.7 g/dL (3.4-4.8); Alkaline Phosphatase 166 U/L (40-110); Anion Gap 16 mmol/L (10-20); BUN (Urea Nitrogen) 7 mg/dL (9.8-20.1); Bilirubin, Total 0.7 mg/dL (0.2-1.2); Calc. Creatinine Clearance 0 mL/min (70-130); Calcium 9.7 mg/dL (7.8-10.44); Carbon Dioxide 25 mmol/L (23-31); Chloride 95 mmol/L (98-107); Estimated GFR 75; Globulin 3.7 g/dL (2.4-3.5); Glucose 95 mg/dL (80-115); Potassium 4.3 mmol/L (3.5-5.1); Protein, Total 7.4 g/dL (5.8-8.1); Sodium 132 mmol/L (136-145)
[2024-02-23 09:32] LABS: INR-International Normal Ratio 0.9; Prothrombin Time 12.5 sec (12.0-14.7)
[2024-02-23 09:33] LABS: PTT 34.2 sec (22.9-36.1); Troponin I Less than 0.010 ng/mL (< 0.028)
[2024-02-23] MEDS ORDERED: Sodium Chloride 0.9% 100 ML ONE (09:55)
[2024-02-23] MEDS ORDERED: Piperacillin/Tazobactam 3.375 GM VIAL ONE (09:55)
[2024-02-23] MEDS ORDERED: Iopamidol-370 76% 500 ML MDV (1 ML CHARGE) ONE (10:53)
[2024-02-23] MEDS ORDERED: Ondansetron PF 4 MG/2 ML Vial IVP PRN (12:01)
[2024-02-23] MEDS ORDERED: VANCOMYCIN IVPB PRN (12:07)
[2024-02-23] MEDS ORDERED: Ipratropium/Albuterol 3 ML NEB NEB PRN (12:08)
[2024-02-23] MEDS ORDERED: Lidocaine 1% w/Epinephrine 1:100K 20 ML VIAL ONE (12:22)
[2024-02-23] MEDS ORDERED: Bupivacaine PF 0.5% 30 ML VIAL ONE (12:22)
[2024-02-23] MEDS: Vancomycin (BATCH) 1.25 GM in Premix 1 BAG IVPB SCH (13:00)
[2024-02-23] MEDS: Sodium Chloride 0.9% 1,000 ML IV SCH (13:07)
[2024-02-23 13:11] VITALS: BMI 21.2
[2024-02-23] MEDS: Piperacillin/Tazobactam 3.375 GM in Sodium Chloride 0.9% 100 ML IVPB SCH (13:35)
[2024-02-23] MEDS: predniSONE 20 MG TAB PO SCH (13:35)
[2024-02-23] MEDS ORDERED: Piperacillin/Tazobactam 4.5 GM in Sodium Chloride 0.9% 100 ML IVPB SCH (14:00)
[2024-02-23] MEDS: Ipratropium/Albuterol 3 ML NEB NEB SCH (14:18)
[2024-02-23] MEDS: Acetaminophen 325 MG TAB PO PRN (17:15)
[2024-02-23] MEDS: Mometasone 100 MCG HFA INHALER (RT USE) INH SCH (18:54)
[2024-02-23] MEDS: Famotidine 20 MG TAB PO SCH (20:44)
[2024-02-23] MEDS: Atorvastatin Calcium 40 MG TAB PO SCH (20:44)
[2024-02-24] MEDS: Vancomycin (BATCH) 1.25 GM in Premix 1 BAG IVPB SCH (00:01)
[2024-02-24 06:21] LABS: #Basophils Less than 0.03 10x3/uL (0.0-0.2); #Eosinophils Less than 0.03 10x3/uL (0.0-0.7); %Basophils 0.1 % (0.0-1.0); %Lymphocytes 10.2 % (21.0-51.0); %Monocytes 4.8 % (0.0-10.0); %Neutrophils 84.2 % (42.0-75.0); Hematocrit 36.2 % (36.0-47.0); Hemoglobin 12.2 g/dL (12.0-16.0); Mean Corpuscular HGB CONC 33.7 g/dL (32.0-36.0); Mean Corpuscular Hemoglobin 29.8 pg (27.0-31.0); Mean Corpuscular Volume 88.3 fL (78.0-98.0); Mean Platelet Volume 9.9 fL (7.4-10.4); Platelet Count 350 10x3/uL (130-400); RBC Distribution Width 14.5 % (11.5-14.5)
[2024-02-24 06:35] LABS: Anion Gap 10 mmol/L (10-20); BUN (Urea Nitrogen) 6 mg/dL (9.8-20.1); Calc. Creatinine Clearance 56 mL/min (70-130); Calcium 8.9 mg/dL (7.8-10.44); Carbon Dioxide 23 mmol/L (23-31); Chloride 103 mmol/L (98-107); Estimated GFR 77; Glucose 96 mg/dL (80-115); Potassium 3.9 mmol/L (3.5-5.1); Sodium 132 mmol/L (136-145)
[2024-02-24] MEDS ORDERED: Vancomycin (BATCH) 1.25 GM in Premix 1 BAG IVPB SCH (11:00)
[2024-02-24] MEDS ORDERED: Iopamidol 370 76% 100 ML VIAL ONE (11:12)
[2024-02-24] MEDS: Lisinopril 10 MG TAB PO SCH (11:15)
[2024-02-24] MEDS: Enoxaparin 40 MG (0.4 mL) SYRINGE SC SCH (11:15)
[2024-02-24] MEDS: predniSONE 20 MG TAB PO SCH (11:15)
[2024-02-24 16:19] VITALS: BP 152/81; TEMP 97.5
[2024-02-24 18:13] VITALS: BMI 21.2
== END 2024-02-24 17:34 | disposition home or self-care (01) | DRG 598 ==
LOC: ERS 08:23 → T4-A 12:55
PROVIDERS: ADMIT Internal Medicine; ATTEND Internal Medicine
PROC: 0HBT3ZX Excision of Right Breast, Percutaneous Approach, Diagnostic (ICD-10-PCS; principal; 2024-02-24)
DX: C50.911 Malignant neoplasm of unspecified site of right female breast (principal); C78.00 Secondary malignant neoplasm of unspecified lung; J44.1 Chronic obstructive pulmonary disease with (acute) exacerbation; C79.51 Secondary malignant neoplasm of bone; C78.7 Secondary malignant neoplasm of liver and intrahepatic bile duct; I10 Essential (primary) hypertension; K21.9 Gastro-esophageal reflux disease without esophagitis; E78.00 Pure hypercholesterolemia, unspecified; Z98.890 Other specified postprocedural states; F17.210 Nicotine dependence, cigarettes, uncomplicated
CPT/HCPCS: 36415; 71045; 71275; 74177; 78306; 80048; 80053; 80202; 83605; 83880; 84484; 85025; 85610; 85730; 86300; 87040; 87070; 87077; 87186; 87205; 88305; 88341; 88342; 93005; 94640; 96365; 96367; 97139; A9503; J0665; J1650; J2543; J3370; J7512; J7620; Q9967

== ENCOUNTER 2024-03-14 11:57 | Emergency (ER) | payer SELFPAY ==
[~2024-03-14 11:57] MED LIST: Iopamidol-370 76% 500 ML MDV (1 ML CHARGE) ONE
[2024-03-14 12:41] LABS: #Basophils 0.06 10x3/uL (0.0-0.2); %Basophils 0.8 % (0.0-1.0); %Eosinophils 0.4 % (0.0-10.0); %Lymphocytes 12.3 % (21.0-51.0); %Monocytes 6.7 % (0.0-10.0); %Neutrophils 79.4 % (42.0-75.0); Hematocrit 39.3 % (36.0-47.0); Hemoglobin 13.5 g/dL (12.0-16.0); Mean Corpuscular HGB CONC 34.4 g/dL (32.0-36.0); Mean Corpuscular Hemoglobin 30.3 pg (27.0-31.0); Mean Corpuscular Volume 88.1 fL (78.0-98.0); Mean Platelet Volume 9.4 fL (7.4-10.4); Platelet Count 410 10x3/uL (130-400); RBC Distribution Width 14.7 % (11.5-14.5); Red Blood Cell (RBC) Count 4.46 mill/uL (4.20-5.40)
[2024-03-14] MEDS ORDERED: methylPREDNISolone Sod Succ/PF 125 MG/2 ML VIAL ONE (12:41)
[2024-03-14 13:02] LABS: ALT (SGPT) 42 U/L (8-55); AST (SGOT) 70 U/L (5-34); Albumin 3.5 g/dL (3.4-4.8); Alkaline Phosphatase 174 U/L (40-110); Anion Gap 16 mmol/L (10-20); BUN (Urea Nitrogen) 8 mg/dL (9.8-20.1); Bilirubin, Total 0.6 mg/dL (0.2-1.2); Calc. Creatinine Clearance 0 mL/min (70-130); Calcium 9.3 mg/dL (7.8-10.44); Carbon Dioxide 20 mmol/L (23-31); Chloride 95 mmol/L (98-107); Estimated GFR 89; Globulin 3.8 g/dL (2.4-3.5); Glucose 95 mg/dL (80-115); Magnesium 2.2 mg/dL (1.6-2.6); Potassium 4.1 mmol/L (3.5-5.1); Protein, Total 7.3 g/dL (5.8-8.1); Sodium 127 mmol/L (136-145)
[2024-03-14 13:04] LABS: Troponin I Less than 0.010 ng/mL (< 0.028)
[2024-03-14] MEDS ORDERED: Morphine 2 MG/ML VIAL ONE (13:32)
[2024-03-14] MEDS ORDERED: Ipratropium/Albuterol 3 ML NEB ONE (13:33)
[2024-03-14] MEDS ORDERED: Tranexamic Acid 1,000 MG/10 ML VIAL ONE (13:33)
[2024-03-14] MEDS ORDERED: Ondansetron PF 4 MG/2 ML Vial ONE (14:28)
== END 2024-03-14 16:31 | disposition home or self-care (01) ==
LOC: ERS 11:57
DX: R06.00 Dyspnea, unspecified (principal); I10 Essential (primary) hypertension; J44.9 Chronic obstructive pulmonary disease, unspecified; F17.210 Nicotine dependence, cigarettes, uncomplicated
CPT/HCPCS: 36415; 71045; 71275; 80053; 83605; 83735; 83880; 84145; 84484; 85025; 93005; 96374; 96375; J2272; J2405; J2919; J7620; Q9967

== ENCOUNTER 2024-03-31 09:49 | Emergency (ER) | payer MEDICAID, SELFPAY ==
[2024-03-31] MEDS ORDERED: Ondansetron PF 4 MG/2 ML Vial ONE (10:30)
[2024-03-31] MEDS ORDERED: methylPREDNISolone Sod Succ/PF 125 MG/2 ML VIAL ONE (10:31)
[2024-03-31] MEDS ORDERED: Ipratropium/Albuterol 3 ML NEB ONE (10:33)
[2024-03-31 12:01] LABS: ALT (SGPT) 72 U/L (8-55); AST (SGOT) 163 U/L (5-34); Alkaline Phosphatase 187 U/L (40-110); Anion Gap 17 mmol/L (10-20); BUN (Urea Nitrogen) 11 mg/dL (9.8-20.1); Bilirubin, Total 0.8 mg/dL (0.2-1.2); Calc. Creatinine Clearance 0 mL/min (70-130); Calcium 8.9 mg/dL (7.8-10.44); Carbon Dioxide 21 mmol/L (23-31); Chloride 97 mmol/L (98-107); Estimated GFR 75; Globulin 4.2 g/dL (2.4-3.5); Glucose 83 mg/dL (80-115); Potassium 4.4 mmol/L (3.5-5.1); Protein, Total 7.2 g/dL (5.8-8.1); Sodium 131 mmol/L (136-145)
[2024-03-31 12:03] LABS: Hematocrit 41.5 % (36.0-47.0); Mean Corpuscular HGB CONC 33.7 g/dL (32.0-36.0); Mean Corpuscular Hemoglobin 30.1 pg (27.0-31.0); Mean Corpuscular Volume 89.2 fL (78.0-98.0); Mean Platelet Volume 10.3 fL (7.4-10.4); Platelet Count 443 10x3/uL (130-400); RBC Distribution Width 14.7 % (11.5-14.5); Red Blood Cell (RBC) Count 4.65 mill/uL (4.20-5.40)
[2024-03-31 12:05] LABS: Troponin I 0.019 ng/mL (< 0.028)
[2024-03-31] MEDS ORDERED: Iopamidol-370 76% 500 ML MDV (1 ML CHARGE) ONE (12:21)
[2024-03-31] MEDS ORDERED: Aspirin Chewable 81 MG TAB ONE (12:36)
[2024-03-31 12:58] LABS: Band 4 % (5-11); Burr Cells SLIGHT = 2-5 cells HPF (0-1); Lymphocytes 4 % (21-51); Monocytes 4 % (0-10); Neutrophil 86 % (42-75); Ovalocytes SLIGHT = 2-5 cells HPF (0-1); Platelet Adequacy Comment Platelets Increased; Polychromasia SLIGHT = 2-3 cells HPF (0-2); Reactive Lymphocytes 1 % (0-10)
[2024-03-31 13:52] LABS: Lipase 19 U/L (8-78); Magnesium 2.4 mg/dL (1.6-2.6)
== END 2024-03-31 14:28 | disposition home or self-care (01) ==
LOC: ERS 09:49
DX: J44.1 Chronic obstructive pulmonary disease with (acute) exacerbation (principal); J45.909 Unspecified asthma, uncomplicated; E78.5 Hyperlipidemia, unspecified; I10 Essential (primary) hypertension; F17.210 Nicotine dependence, cigarettes, uncomplicated; C50.919 Malignant neoplasm of unspecified site of unspecified female breast
CPT/HCPCS: 36415; 71275; 76705; 80053; 83690; 83735; 83880; 84484; 85025; 93005; 96374; 96375; J2405; J2919; J7620; Q9967